=== PATIENT | female | born 2000 | race African-American/Black ===

== ENCOUNTER 2020-11-06 02:24 | Observation (INO) ==
[2020-11-06] MEDS ORDERED: SODIUM CHLORIDE 0.9% 1000ML 1,000 ML IV SCH (02:45)
[2020-11-06 03:17] LABS: Hematocrit (blood only) 21.7 % (37-47); Mean Corpuscular Hemoglobin 24.5 pg (25-34); Mean Corpuscular Hgb Conc 32.3 g/dL (32-36); Mean Corpuscular Volume 75.9 fL (80-100); Mean Platelet Volume 9.4 fL (7.4-10.4); Platelet Count 235 K/uL (130-400); Red Blood Count 2.86 M/uL (4.2-5.4); White Blood Count 7.14 K/uL (4.8-10.8)
[2020-11-06 03:19] LABS: Alanine Aminotransferase 13 U/L (12-78); Albumin Level 3.1 gm/dl (3.4-5.0); BUN Creatinine Ratio 8.6 (10-20); Blood Urea Nitrogen 7 mg/dl (7-18); Calcium 8.1 mg/dl (8.5-10.1); Carbon Dioxide 24 mmol/L (21-32); Chloride 110 mmol/L (98-107); Est GFR (Non-African American) 108.7; Glucose 113 mg/dl (70-99); Potassium 3.2 mmol/L (3.5-5.1); Sodium 141 mmol/L (136-145)
[2020-11-06 03:23] LABS: Albumin Globulin Ratio 1.1 (0.9-2); Alkaline Phosphatase 34 U/L (45-117); Aspartate Aminotransferase 9 U/L (15-37); Bilirubin,Total 0.5 mg/dl (0.2-1); Globulin 2.9 gm/dl (2.5-4.0); Troponin I < 0.015 ng/ml (0-0.045)
[2020-11-06 03:26] LABS: Anisocytosis Present; Basophils # (auto) 0.01 K/uL (0-0.2); Basophils % (auto) 0.1 %; Eosinophils # (auto) 0.04 K/uL (0-0.5); Eosinophils % (auto) 0.6 %; Hypochromasia Present; Immature Granulocytes # (auto) 0.01 K/uL (0.00-0.02); Immature Granulocytes % (auto) 0.1 %; Lymphocytes # (auto) 2.68 K/uL (1.2-3.4); Lymphocytes % (auto) 37.5 %; Monocytes # (auto) 0.44 K/uL (0.11-0.59); Monocytes % (auto) 6.2 %; Neutrophils # (auto) 3.96 K/uL (1.4-6.5); Neutrophils % (auto) 55.5 %; Ovalocytes 1+
[2020-11-06] MEDS ORDERED: SODIUM CHLORIDE 0.9% 250 ML IV PRN ×2 (03:39→04:31)
[2020-11-06] MEDS ORDERED: diphenhydrAMINE 50 MG/ML VIAL IV STA ×2 (03:39→04:36)
[2020-11-06] MEDS ORDERED: ACETAMINOPHEN 325 MG TAB PO STA ×2 (03:39→04:36)
--- NOTE | 2020-11-06 04:42 | History & Physical Report ---
Date of Service November 06, 2020 Assessment & Plan (1) Menorrhagia: (2) Fibroid uterus: (3) Anemia: Discussed with patient her above diagnoses and her return to ER. Recommend observation to see if we can control bleeding medically to stabilize her and given drop in her hgb, transfusion. She is agreeable. Again expressed importance of her having a plan as I still do not know that she will not need more urgent surgery. Explained if bleeding does not slow or recurs, may need emergency donis moises and so for now will keep her NPO. She has wanted to plan laparoscopic myomectomy but again cancelled appt I made for her with [facility] with plan to see HEAD BONE GRINDER in her hometown, [facility]. She verbalizes that she is aware that needs to be JAY. She plans to call them in am about this. She seems to realize that she cannot wait for semester to be over etc. The ocps as we had talked about or any hormones for that matter may not result in stabilized bleeding which it has not, at least for past 2wks. She has history of severe anemia and anemia now, continues to indicate she needs to understand urgency of her next steps. She expresses understanding. I expressed empathy over her age with her current situation, fibroid and bleeding with recurrent anemia as we have before and she is appreciative. She mentions [facility] BONE GRINDER wanted a "script" for her surgery and I explained that when she calls them, she can get contact info to us and we are happy to call and discuss her case with them and get any records to them to aid in her treatment planning. History of Present Illness Chief Complaint: heavy vaginal bleeding Primary Care Provider: NO PCP 20yo G0 with known fibroid uterus and heavy vaginal bleeding. Patient is known to me when I saw her as new patient in September. That was after being seen in ER for other reasons and had hgb of 5.4 and given 2u PRBCs. She spoke to ER MD about her periods and he advised she see HEAD BONE GRINDER. When I saw her in Sep 2020 that was her first ever exterior interior specialist exam. Clearly mass noted on exam and u/s showed about 6cm fundal fibroid and saline HS done same day showing all myometrial, subserosal, but encompassing the entire myometrium. Can see my office notes, she was reluctant to do anything but accepted referral to [facility] for surgery given age and location of fibroid and ultimately agreed to start ocps to temporize bleeding after long discussions. This evening she came to ER reporting 7-14d history of heavy bleeding and large clots, soaking pad q30min and passing clots that she said "clogged the shower drain." She did not call our office to let us know of this bleeding, instead made an online apt to see us about 2days ago. Given the continued heaviness opted to come to ER and I was called and ER initiated aygestin for now and hgb was 9, but down from 12.1 earlier in month. OCP was to be stopped. She felt well and went home but on arrival home had another large gush, trickling down legs and soiling clothing and felt like she was going to faint and so came back to ER. Her hgb was rechecked and was 7 and I was called and came to see her. She is from the [facility] area and of note, did not see the [employer] consultant i set her up with at [facility], Dr. Hamilton. Of note, I personally called Dr. Hamilton about this appointment as I was and have been concerned of patient's lack of insight regarding the acuity of her situation. Instead she and her family want her to see [facility] in [facility] but she has yet to get appointment. I was aware of this when I got a message last week that patient wanted me to order an MRI for her upcoming [facility] consult regarding her fibroid but she never told our nurses about her heavy bleeding at that time. She saw Dr. Carranza my partner on 10/22 for vaginitis symptoms and at that time was having brown bleeding only, can see her note as well. But it would seem given today's date she shortly thereafter started with this heavy bleeding but never notified us. She is laying in bed, denies dizziness right now. Noting the heavy bleeding. All Active Problems (Updated 11/06/20 @ 01:56 by Ryan Torres MD) Anemia (Acute) Fibroid uterus Hirsutism Menorrhagia (Acute) Allergies Allergy/AdvReac Type Severity Reaction Status Date / Time No Known Allergies Allergy Verified 11/06/20 02:51 Home Medications Medication Instructions Recorded Confirmed Type ibuprofen 600 mg PO Q6H PRN 09/09/20 11/06/20 History albuterol sulfate 2 puff INHALATION DIRECTED PRN 11/06/20 11/06/20 History ferrous sulfate 325 mg PO BID 11/06/20 11/06/20 History norethindrone acetate [Aygestin] 5 mg PO DAILY 21 Days #46 tab 11/06/20 11/06/20 Rx norgestimate-ethinyl estradiol 1 tab PO DAILY 11/06/20 11/06/20 History [Ema] Patient History Medical History No pertinent past medical history Surgical History No pertinent past surgical history Family History Denies family history of Ovarian cancer Breast cancer Colorectal cancer Social History Smoking Status: Never smoker Preferred Language: Czech Feels Safe at Home: Yes Review of Systems no fever + abnormal vaginal bleeding Physical Exam Constitutional: WD/WN, vitals as above Neurologic: grossly normal Psychiatric: A+Ox3, euthymic affect Genitourinary: normal external appearance Speculum/Bimanual Exam: normal appearance of the vagina, normal appearance of the cervix (25cent clots x 2 in vault, no active bleeding, cx posterior) and + uterus enlarged (10, large anterior vaginal bulge); no adnexal mass difficult exam due to patient's tolerance. after BME felt large anterior bulge and so reintroduced speculum to make sure I did not miss prolapse lesion but again, cx seen posterior, nothing prolapse. poor exam tolerance. Results & Data ([facility]) Vital Signs (Past 12 Hours) Vital Signs Temp Pulse Pulse Resp BP BP Pulse Ox 11/06/20 04:28 89 16 95/78 L 99 11/06/20 03:24 100 11/06/20 02:28 98.6 F 117 H 16 123/88 100 Coding Level of Care Code 43364 OBS Care - Level 3 Diagnoses Menorrhagia N92.0 Fibroid uterus D25.9 Anemia D64.9
[2020-11-06] MEDS ORDERED: LACTATED RINGER'S 1,000 ML IV SCH (04:45)
[2020-11-06] MEDS ORDERED: IBUPROFEN 600 MG TAB PO PRN (05:03)
[2020-11-06] MEDS ORDERED: ACETAMINOPHEN 325 MG TAB PO PRN (05:03)
[2020-11-06] MEDS: NORETHINDRONE 5 MG TAB PO SCH ×3 (06:44→17:40)
[2020-11-06 13:11] LABS: Hematocrit (blood only) 24.7 % (37-47); Hemoglobin 8.3 g/dL (12.0-16.0)
--- NOTE | 2020-11-06 16:49 | Electrocardiogram Report ---
Test Reason : Blood Pressure : / mmHG Vent. Rate : 088 BPM Atrial Rate : 088 BPM P-R Int : 166 ms QRS Dur : 078 ms QT Int : 352 ms P-R-T Axes : 056 069 051 degrees QTc Int : 425 ms Normal sinus rhythm Normal ECG When compared with ECG of 15-OCT-2020 19:19, No significant change was found Confirmed by Walker Kelly ([id number]) on 11/06/2020 4:49:32 PM Referred By: REFERRED SELF Confirmed By:Matt Kelly
--- NOTE | 2020-11-06 17:13 | Gynecologic Progress Note ---
Date of Service November 06, 2020 Assessment & Plan Admission and Anticipated Discharge Date Admission Date: November 06, 2020 Subjective Patient has been doing well all day she had a little bit of an increase in bleed at 3:30 PM today till 5C did soak 2 pads. I discussed with the patient the idea of staying overnight she strongly wishes to go home her hemoglobin was 8.9 after 2 units of blood transfusion she is on progesterone and feels like it is helping progesterone has been given orally there is a prescription at her pharmacy I discussed we could keep her overnight and actually recommended this to see that her bleeding was still under control but at this stage the patient really would like to go home I discussed she might bounce back to the ER tonight if things worsen and she understands that issue and is going to take the risk Results & Data ([facility]) Vital Signs (Past 12 Hours) Vital Signs Temp Pulse Pulse Resp BP BP Pulse Ox 11/06/20 16:14 98.6 F 98 H 16 107/76 100 11/06/20 15:42 98.6 F 98 H 16 107/76 100 11/06/20 11:49 97.7 F 84 14 96/60 L 100 11/06/20 11:48 97.7 F 84 14 96/60 L 100 11/06/20 09:45 98.2 F 80 18 93/57 L 100 11/06/20 09:15 98.1 F 81 18 97/59 L 100 11/06/20 08:27 97.7 F 86 20 97/62 L 100 11/06/20 08:09 97.5 F L 90 20 85/51 L 100 11/06/20 07:45 97.9 F 98 H 16 101/6 L 101/64 100 11/06/20 06:45 98.1 F 103 H 18 117/63 11/06/20 06:16 98.1 F 102 H 18 93/59 L 11/06/20 06:01 98.1 F 106 H 18 107/69 11/06/20 05:38 97.7 F 103 H 18 120/74 PG Care Time/CCT Total # of Minutes Spent Total Time Spent with Patient: Total time spent is greater than 50% in coordination of care (as documented) at patient's floor/unit and/or counseling patient: Coding Level of Care Code None
--- NOTE | 2020-11-07 00:23 | Emergency Department Note ---
History of Present Illness General Chief complaint: Vaginal Bleeding Stated complaint: SOB,VAG BLEEDING Time Seen by Provider: 11/06/20 02:38 History of Present Illness Maximum Pain Intensity: 0 This is a 20-year-old female returning to the emergency department for evaluation of vaginal bleeding. The patient was seen and evaluated at this facility and discharged home within the past 12 hours. She has a known uterine fibroid that typically causes her very heavy menses. At initial visit her hemoglobin was 8.4 and she felt better after hydration and treatment in the ER. She was started on Aygestin after consultation with TIP TESTER. The patient states that she went home, felt well for about 30 to 60 minutes, had another gush of vaginal blood and then had a syncopal episode. The patient contacted the ER, and we requested that she return for further evaluation. On arrival the patient states that she has more persistent bleeding. She is having some vague shortness of breath symptoms that were not initially present. No injury from the syncopal episode is reported. She rates her current discomfort a 7/10. Home Medications Medication Instructions Recorded Confirmed Type ibuprofen 600 mg PO Q6H PRN 09/09/20 11/06/20 History albuterol sulfate 2 puff INHALATION DIRECTED PRN 11/06/20 11/06/20 History ferrous sulfate 325 mg PO BID 11/06/20 11/06/20 History norethindrone acetate [Aygestin] 5 mg PO DAILY 21 Days #46 tab 11/06/20 Rx Allergies Allergy/AdvReac Type Severity Reaction Status Date / Time No Known Allergies Allergy Verified 11/06/20 02:51 Past Med/Surg History Medical History (Updated 11/07/20 @ 00:24 by Wayne Solis PA-C) Anemia Fibroid uterus Menorrhagia No pertinent past medical history Surgical History No pertinent past surgical history Family History Denies family history of Ovarian cancer Breast cancer Colorectal cancer Social History Smoking Status: Never smoker Hx Alcohol Use: No Hx Substance Use: No Preferred Language: German Communication Ability: Effective Compliance Administrator Required: No Beliefs That Will Affect Care: None Current Living Situation: Other Current Living Situation Comment: College Student Feels Safe at Home: Yes Assistive Devices: None Review of Systems A total of 10 systems reviewed and were otherwise negative Physical Exam Vital Signs Vital Signs - 24 hr 11/06/20 02:28 11/06/20 03:24 Temperature 37 C Temperature Source Oral Pulse Rate 117 H Respiratory Rate 16 Blood Pressure 123/88 Blood Pressure Mean 99 Pulse Oximetry 100 100 Oxygen Delivery Method Room Air Room Air Sepsis Recent Fever Within 48 Hours No Sepsis New/Unexplained Change in Mental Status N/A Sepsis Action Taken by Nursing No Action Required VITALS: Vitals are noted on the nurse's note and reviewed by myself. Vital signs with tachycardia GENERAL: Well-developed, well-nourished, black female, who is cooperative and pleasant. Red blood is noted on her pants. HEAD: Normocephalic atraumatic. HEART: Regular rate and rhythm without murmurs gallops or rubs. LUNGS: Clear to auscultation bilaterally without wheezes, rales or rhonchi. No retractions or accessory muscle use. ABDOMEN: Positive normal bowel sounds x 4. Soft, nontender, without masses or organomegaly. No guarding or rebound tenderness. MUSCULOSKELETAL: No muscle atrophy, erythema, or edema noted. Full range of motion in all extremities. NEURO: Patient was alert and oriented to person place and time. CN II through XII grossly intact. Course Administered Medications Discontinued Medications Acetaminophen (Acetaminophen 325 Mg Tab) 650 mg PO NOW STA Stop: 11/06/20 03:40 Last Admin: 11/06/20 05:33 Dose: Not Given Documented by: [id number] Acetaminophen (Acetaminophen 325 Mg Tab) 650 mg PO NOW STA Stop: 11/06/20 04:37 Last Admin: 11/06/20 05:14 Dose: 650 mg Documented by: [id number] Diphenhydramine HCl (Diphenhydramine 50 Mg/Ml Vial) 25 mg IV NOW STA Stop: 11/06/20 03:40 Last Admin: 11/06/20 05:32 Dose: Not Given Documented by: [id number] Diphenhydramine HCl (Diphenhydramine 50 Mg/Ml Vial) 25 mg IV NOW STA Stop: 11/06/20 04:37 Last Admin: 11/06/20 05:13 Dose: 25 mg Documented by: [id number] Sodium Chloride (Nss 1000ml) 1,000 mls @ 999 mls/hr IV .Q1H1M ROHAN Stop: 11/06/20 03:45 Last Infusion: 11/06/20 04:00 Dose: 0 mls/hr Documented by: [id number] Admin: 11/06/20 02:59 Dose: 999 mls/hr Documented by: [id number] Lactated Ringer's (Lr) 1,000 mls @ 125 mls/hr IV .Q8H ROHAN Stop: 12/06/20 04:44 Last Infusion: 11/06/20 10:45 Dose: 125 mls/hr Documented by: [id number] Infusion: 11/06/20 05:46 Dose: 0 mls/hr Documented by: [id number] Admin: 11/06/20 05:26 Dose: 125 mls/hr Documented by: [id number] Ibuprofen (Ibuprofen 600 Mg Tab) 600 mg PO Q6H PRN PRN Reason: Pain Stop: 12/06/20 05:02 Last Admin: 11/06/20 16:41 Dose: 600 mg Documented by: [id number] Norethindrone (Norethindrone 5 Mg Tab) 5 mg PO Q6 ROHAN Stop: 12/06/20 05:59 Last Admin: 11/06/20 17:40 Dose: 5 mg Documented by: [id number] Admin: 11/06/20 11:47 Dose: 5 mg Documented by: [id number] Admin: 11/06/20 06:44 Dose: 5 mg Documented by: [id number] Critical Care Time I have personally spent greater than 30 minutes of critical care time in the direct management of this patient. This includes bedside care, interpretation of diagnostic studies, and testing, discussion with consultants, patient, and family members, and other required patient management activities. This 30 minutes is in excess of all separately billable procedures. Medical Decision Making Differential Diagnosis Differential diagnosis: Etiologies such as ectopic , dysfunction uterine bleeding, pelvic mass, fibroid, coagulopathy, anemia, trauma, infection, as well as others were entertained. Laboratory Data Result diagrams: 11/06/20 12:59 11/06/20 02:52 Lab Results 11/06/20 11/06/20 11/06/20 Range/Units 02:48 02:52 02:52 WBC 7.14 (4.8-10.8) K/uL RBC 2.86 L (4.2-5.4) M/uL Hgb 7.0 L (12.0-16.0) g/dL Hct 21.7 L (37-47) % MCV 75.9 L (80-100) fL MCH 24.5 L (25-34) pg MCHC 32.3 (32-36) g/dL Plt Count 235 (130-400) K/uL MPV 9.4 (7.4-10.4) fL Immature Gran % (Auto) 0.1 % Neut % (Auto) 55.5 % Lymph % (Auto) 37.5 % [place]cho % (Auto) 6.2 % Eos % (Auto) 0.6 % Baso % (Auto) 0.1 % Neut # (Auto) 3.96 (1.4-6.5) K/uL Lymph # (Auto) 2.68 (1.2-3.4) K/uL [place] # (Auto) 0.44 (0.11-0.59) K/uL Eos # (Auto) 0.04 (0-0.5) K/uL Baso # (Auto) 0.01 (0-0.2) K/uL Immature Gran # (Auto) 0.01 (0.00-0.02) K/uL Hypochromasia Present Anisocytosis Present Ovalocytes 1+ Sodium 141 (136-145) mmol/L Potassium 3.2 L (3.5-5.1) mmol/L Chloride 110 H (98-107) mmol/L Carbon Dioxide 24 (21-32) mmol/L Anion Gap 7.0 (3-11) BUN 7 (7-18) mg/dl Creatinine 0.78 (0.6-1.2) mg/dl Est Cr Clr Drug Dosing Not Reportable Est GFR ( Amer) 126.0 Est GFR (Non-Af Amer) 108.7 BUN/Creatinine Ratio 8.6 L (10-20) Glucose 113 H (70-99) mg/dl Calcium 8.1 L (8.5-10.1) mg/dl Total Bilirubin 0.5 (0.2-1) mg/dl AST 9 L (15-37) U/L ALT 13 (12-78) U/L Alkaline Phosphatase 34 L (45-117) U/L Troponin I < 0.015 (0-0.045) ng/ml Total Protein 6.0 L (6.4-8.2) gm/dl Albumin 3.1 L (3.4-5.0) gm/dl Globulin 2.9 (2.5-4.0) gm/dl Albumin/Globulin Ratio 1.1 (0.9-2) Blood Type A Positive Antibody Screen NEGATIVE Crossmatch See Detail MDM Narrative Physical exam and history were performed. Nursing notes, EMR, and Medication List were personally reviewed. Patient appears to have severe vaginal bleeding with syncopal episode. Her symptoms seem to have worsened despite starting Aygestin. 2 IVs were established and labs were obtained. The patient was hydrated with normal saline. An order was placed for continuous cardiac monitoring. The monitor shows a rate of 84 with normal sinus rhythm. The patient's blood work is as above and was reviewed. Hemoglobin is decreased from 8.4 down to 7.0 over the course of about 4 hours. She does not have a significantly elevated white blood cell count or gross electrolyte imbalance. Blood bank was performed at previous visit and she is type a positive with negative antibody screen. Due to the acute anemia, tachycardia, and new syncope I did rapidly involve TIP TESTER with the patient's care. They were kind enough to evaluate the patient at bedside and did perform pelvic exam. Please see their dictation for specifics of this. After discussion with TIP TESTER we did elect to begin transfusion of 2 units. Consents were performed with Dr. Connors, and transfusion was initiated. Overall the patient will be brought into the hospital through the TIP TESTER service for her symptoms. I did speak with patient's family to keep them up-to-date on her status. The patient was pleased with this plan and voiced understanding. The chart was completed utilizing [employer] Voice Recognition Software. Grammatical errors, random word insertions, pronoun errors, and incomplete sentences are an occasional consequence of this system due to software limitations, ambient noise, and hardware issues. Any formal questions or concerns about the content, text, or information contained within the body of this dictation should be directly addressed to the provider for clarification. . Impression & Plan Abnormal vaginal bleeding, Anemia, Syncope, Acute hemorrhage Discharge Plan Visit Data Chief Complaint: Vaginal Bleeding Stated Complaint: SOB,VAG BLEEDING ED Provider: Yeimy Connors ED Midlevel Provider: Wayne Solis Discharge Problem: Abnormal vaginal bleeding, Anemia, Syncope, Acute hemorrhage Patient Disposition: Admitted As Inpatient Discharge Instructions Interventions: ED Discharge Assessment Last Done: 11/06/20 04:30
--- NOTE | 2020-11-09 16:32 | Discharge Summary ---
Date of Service Day of observation and day of discharge: November 06, 2020 Admission HPI Per Admitting Provider 20yo G0 with known fibroid uterus and heavy vaginal bleeding. Patient is known to me when I saw her as new patient in September. That was after being seen in ER for other reasons and had hgb of 5.4 and given 2u PRBCs. She spoke to ER MD about her periods and he advised she see PERSONNEL REPRESENTATIVE. When I saw her in Sep 2020 that was her first ever ocean lifeguard exam. Clearly mass noted on exam and u/s showed about 6cm fundal fibroid and saline HS done same day showing all myometrial, subserosal, but encompassing the entire myometrium. Can see my office notes, she was reluctant to do anything but accepted referral to [facility] for surgery given age and location of fibroid and ultimately agreed to start ocps to temporize bleeding after long discussions. This evening she came to ER reporting 7-14d history of heavy bleeding and large clots, soaking pad q30min and passing clots that she said "clogged the shower drain." She did not call our office to let us know of this bleeding, instead made an online apt to see us about 2days ago. Given the continued heaviness opted to come to ER and I was called and ER initiated aygestin for now and hgb was 9, but down from 12.1 earlier in month. OCP was to be stopped. She felt well and went home but on arrival home had another large gush, trickling down legs and soiling clothing and felt like she was going to faint and so came back to ER. Her hgb was rechecked and was 7 and I was called and came to see her. She is from the [facility] area and of note, did not see the business continuity consultant i set her up with at [facility], [place]. Hamitlon. Of note, I personally called Dr. Hamilton about this appointment as I was and have been concerned of patient's lack of insight regarding the acuity of her situation. Instead she and her family want her to see [facility] in [facility] but she has yet to get appointment. I was aware of this when I got a message last week that patient wanted me to order an MRI for her upcoming [facility] consult regarding her fibroid but she never told our nurses about her heavy bleeding at that time. She saw Dr. Carranza my partner on 10/22 for vaginitis symptoms and at that time was having brown bleeding only, can see her note as well. But it would seem given today's date she shortly thereafter started with this heavy bleeding but never notified us. She is laying in bed, denies dizziness right now. Noting the heavy bleeding. All Active Problems (Updated 11/06/20 @ 01:56 by Ryan Torres MD) Anemia (Acute) Fibroid uterus Hirsutism Menorrhagia (Acute) Discharge Data Consultations 11/06/20 03:42 ED Decision to Admit Stat Hospital Course (1) Anemia: (2) Abnormal vaginal bleeding: (3) Vaginal bleeding: (4) Fibroid uterus: (5) Menorrhagia: Patient was begun on a high dose aygestin regimen and 2 units PRBCs. She was reevaluated by my partner later on same day of observation and deemed stable for discharge. She had some increased bleeding just hours before but overall bleeding had improved (but see his note for details) and in addition patient did not want to stay in hospital. Post transfusion hgb was 8.3. She was to make appointments to followup with [facility] which is her preferred provider of care. Coding Level of Care Code None Diagnoses Anemia D64.9 Abnormal vaginal bleeding N93.9 Vaginal bleeding N93.9 Fibroid uterus D25.9 Menorrhagia N92.0
== END 2020-11-06 17:45 | disposition home or self-care (01) ==
LOC: ED 02:24 → 4S2 02:24